=== PATIENT | female | born 1975 | race Two or more races ===

== ENCOUNTER 2016-12-05 04:10 | Inpatient (IN) | payer MEDICAID ==
[~2016-12-05] VITALS: Ht 157.5 cm; Wt 71.6 kg
[2016-12-05 04:36] VITALS: Ht 157.5 cm; Wt 71.6 kg
[2016-12-05 04:37] VITALS: BP 134/80; PULSE 68; RESP 18
[2016-12-05] MEDS ORDERED: PREN1TAB62 PO (04:39)
[2016-12-05] MEDS ORDERED: LACTATED RINGER'S 1,000 ML IV PRN (05:00)
[2016-12-05] MEDS ORDERED: IBUPROFEN 600 MG TAB PO PRN (05:00)
[2016-12-05] MEDS ORDERED: AMPICILLIN 2 GM/NS (PMX) 100 ML IV ONE (05:00)
[2016-12-05] MEDS ORDERED: OXYTOCIN 30 UNITS/LR 500 ML IV SCH ×2 (05:00)
[2016-12-05] MEDS ORDERED: MISOPROSTOL 200 MCG TAB PR PRN ×2 (05:00→15:30)
[2016-12-05] MEDS ORDERED: METHYLERGONOVINE 0.2 MG INJ IM PRN ×2 (05:00→15:30)
[2016-12-05] MEDS ORDERED: BUTORPHANOL 2 MG INJ IV PRN (05:00)
[2016-12-05] MEDS ORDERED: CARBOPROST 250 MCG INJ IM PRN ×2 (05:00→15:30)
[2016-12-05] MEDS ORDERED: OXYTOCIN 30 UNITS/LR 500 ML IV PRN ×2 (05:00→15:30)
[2016-12-05] MEDS ORDERED: LIDOCAINE 1% (MPF) 30 ML INJ INJ PRN (05:00)
[2016-12-05] MEDS: LACTATED RINGER'S 1,000 ML IV SCH ×2 (05:25→06:00)
--- NOTE | 2016-12-05 05:45 | RADRPT ---
PROCEDURE: US OB. CLINICAL INDICATION: Size and dates TECHNIQUE: Multiple sonographic images of the pelvis were obtained. Transabdominal imaging only w as performed. The images were reviewed on a PACS workstation. COMPARISON: No prior studies are available for comparison. FINDINGS: There is a single live intrauterine gestation. Cardiac activity is present with 143 beats per minut e. position is cephalic. Measurements were made in order to determine age. The results are as follows: BPD = 8.71 cm HC = 32.35 cm AC = 38.03 cm FL = 7.66 cm. Estimated gestational age of approximately 37 weeks 0 days. The estimated date of delivery is 12/26/2016. The EFW = 3886 g The placenta is anterior. There is no evidence for an abruption or placenta previa. There are no adnexal masses. IMPRESSION: 1. Single live intrauterine gestation of approximately 37 weeks 0 days, by ultrasound criteria. 2. The estimated date of delivery is 12/26/2016. 3. The estimated weight is 3886 g. RPTAT: HH .Jennifer Leal MD, MD Date Time Electronically viewed and signed by .Jennifer Leal MD, on 12/05/2016 05:45 .G/
--- NOTE | 2016-12-05 05:49 | TRIAGE ---
OB Triage Datetime Report Generated by CPN: 12/05/2016 05:49 Datetime: 12/05/2016 05:29 Comments: PT OFF MONITOR FOR U/S Datetime: 12/05/2016 05:12 Comments: O2 STARTED. Datetime: 12/05/2016 05:01 Labor Evaluation Frequency: 2 Monitor Mode: External Duration (sec)2399: 100 Quality: Mild Pattern: Normal: <= 5 Contractions in 10 Minutes Resting Tone Braddock: Relaxed Heart Rate FHR Baseline Rate: 135 Monitor Mode: External US FHR Baseline Changes: No Baseline Change Variability: Moderate 6-25 bpm Accelerations: 15X15 Decelerations: Variable Category: Category II Datetime: 12/05/2016 04:43 Time of Arrival: 12/05/2016 05:09 EGA: 41.4 Arrived By: Ambulatory Arrived From: Home Datetime: 12/05/2016 04:13 Stage of : OB Triage Assessment Type: Triage Time of Arrival: 12/05/2016 04:06 Arrived By: Wheelchair Arrived From: Home Chief Complaint: CONTRACTIONS AND LEAKING SINCE 0330 Movement: Present Contractions: Irregular Time Contractions Began: 12/05/2016 03:30 Rupture of Membranes: Ruptured Vaginal Discharge: Present Recent Sexual Intercouse: Denies Abdominal Trauma: Not Applicable Patient Complaints: None Time Provider Notified: 12/05/2016 04:44 Provider Notified: DR DUBOSE Initial Plan: CALL BUCKY LIZARRAGA Maternal Assessment Level of Consciousness: Fully Conscious DTR's/Clonus: DTRs 2+; No Clonus Headache: Denies Blurred Vision: No Respiratory Effort: Unlabored; Regular Rhythm; Equal Expansion Breath Sounds, Left: Clear and Equal Breath Sounds, Right: Clear and Equal Nausea/Vomiting: Denies RUQ Epigastric Pain: Denies Lower Extremities Edema: None Degree: None Upper Extremities Edema: None Degree: None Facial Edema: None Temperature Route: Oral Fall Risk Assessment History of Falling: (0) No Secondary Diagnosis: (0) No Ambulatory Aid: (0) Bedrest/Nurse Assist IV Therapy: (0) No Gait: (0) Normal/Bedrest/Immobile Mental Status: (0) Oriented to Own Ability Fall Score: 0 Fall Risk Score Definition: No Risk: No action required Monitor Mode: External Monitor Mode: External US Pain Assessment Pain Scale: 7 Pain Presence: Intermittent Pain Type: Contraction Pain Location: Abdomen; Back Vaginal Exam Dilatation (cms): 1.0 Effacement (%): 50 Station: -3 Exam By: Adri CHUA Membrane Status: Ruptured Membranes Ruptured Date/Time: 12/05/2016 03:30 Membranes Rupture Method: Spontaneous Amniotic Fluid Color: Clear Amniotic Fluid Amount: Small Amniotic Fluid Odor: None
[2016-12-05 05:50] LABS: INR 0.9; PROTIME 12.1 Sec (12.2-14.2); PT RATIO 0.9
[2016-12-05 05:51] LABS: PARTIAL THROMBOPLASTIN TIME 27.1 Sec (25.0-35.0)
[2016-12-05 05:57] LABS: BASOPHILS % 0.4 % (0.0-2.0); EOSINOPHILS # 0.1 10^3/ul (0.0-0.5); HEMATOCRIT 41.2 % (37.0-47.0); HEMOGLOBIN 14.3 g/dl (12.0-16.0); LYMPHOCYTES % 38.1 % (15.0-51.0); MEAN CORPUSCULAR HEMOGLOBIN 31.5 pg (29.0-33.0); MEAN CORPUSCULAR HGB CONC 34.6 g/dl (32.0-37.0); MEAN CORPUSCULAR VOLUME 91.2 fl (82.0-101.0); MEAN PLATELET VOLUME 12.4 fl (7.4-10.4); MONOCYTE # 0.5 10^3/ul (0.3-0.9); MONOCYTES % 6.7 % (0.0-11.0); NEUTROPHIL # 4.2 10^3/ul (1.6-7.5); NEUTROPHILS % 53.8 % (39.0-77.0); PLATELET COUNT 176 10^3/UL (140-440); RED BLOOD COUNT 4.52 10^6/ul (4.20-5.40); RED CELL DISTRIBUTION WIDTH 14.2 % (11.5-14.5); UNCORRECTED WBC 7.9 10^3/ul (4.8-10.8); WHITE BLOOD COUNT 7.9 10^3/ul (4.8-10.8)
[2016-12-05 06:08] LABS: CONDITION 1
[2016-12-05] MEDS ORDERED: TERBUTALINE 1 ML ONE (06:51)
[2016-12-05] MEDS ORDERED: TERBUTALINE 1 MG/ML INJ SC ONE (07:00)
[2016-12-05] MEDS ORDERED: OXYTOCIN 30 UNITS/LR 500 ML BAG IV ONE (07:00)
[2016-12-05 08:17] LABS: ADD UMIC YES; URINE BILIRUBIN (Dip) NEGATIVE (NEGATIVE); URINE BLOOD (Dip) TRACE (NEGATIVE); URINE COLOR LT. YELLOW (YELLOW); URINE GLUCOSE (Dip) NEGATIVE (NEGATIVE); URINE KETONES (Dip) NEGATIVE (NEGATIVE); URINE LEUKOCYTE ESTERASE (Dip) 1+ (NEGATIVE); URINE NITRITE (Dip) NEGATIVE (NEGATIVE); URINE TOTAL PROTEIN (Dip) TRACE (NEGATIVE); URINE UROBILINOGEN (Dip) 0.2 E.U./dL (0.1-1.0)
[2016-12-05] MEDS ORDERED: FENTAnyl 2MCG/ML-ROPIV 0.2% 100 ML ONE (08:19)
[2016-12-05 08:47] LABS: SQUAMOUS EPITHELIAL CELL,UR FEW; URINE RBCS 0-2 /HPF (0)
[2016-12-05] MEDS ORDERED: AMPICILLIN 1 GM/NS (PMX) 50 ML IV SCH (09:00)
[2016-12-05] MEDS ORDERED: CEFAZOLIN 2 GM/50 ML (PMX) 50 ML IVPB SCH (10:30)
[2016-12-05] MEDS ORDERED: morphine SULFATE/PF (10 MG/10 ML) INJ ONE (10:58)
[2016-12-05] MEDS ORDERED: OXYTOCIN 10 UNIT INJ ONE (10:58)
[2016-12-05] MEDS ORDERED: ONDANSETRON 4 MG INJ ONE (10:58)
[2016-12-05] MEDS ORDERED: PHENYLephrine (100 MCG/ML) 5ML SYG ONE (10:59)
[2016-12-05] MEDS ORDERED: KETOROLAC 30 MG INJ IV PRN (14:30)
[2016-12-05] MEDS ORDERED: ONDANSETRON 4 MG INJ IV PRN (14:30)
[2016-12-05] MEDS ORDERED: NALOXONE (0.4 MG/ML) INJ IV PRN (14:30)
[2016-12-05] MEDS ORDERED: morphine 2 MG INJ IV PRN (14:30)
[2016-12-05] MEDS ORDERED: DIPHENHYDRAMINE 50 MG INJ IV PRN (14:30)
--- NOTE | 2016-12-05 14:36 | HP ---
Date/Time of Note Date/Time of Note DATE: 12/05/16 TIME: 14:24 OB - History Hx of Present Free Text/Dictation This is a 41 years old female admitted to [facility] in active labor she is a 1 para 0 with EDC of November 24, 2016 with gestational age at 41 weeks and 4 day, admitting examination cervical dilatation 4-5 cm 90% effacement vertex is -1 station, during the course of labor it was noted heart tracing showing late variable decelerations repeating after most of the contraction considered mostly category 2 and 3 since not anticipating timely delivery this was discussed with the patient and option of observation under very close watch to see if this deceleration resolve or, proceed with operative delivery by patient elected the second she is being prepared to undergo a primary for nonreassuring heart tracing and not anticipating short and timely delivery Estimated Due Date: Nov 24, 2016 : 1 Para: 0 Care: Limited Care Ultrasounds: Normal mid trimester US Obstetrical Complications: None Medical Complications: None Past Family/Social History * Past Medical, Surgical, Family and Obstetric Histories reviewed from chart. Rubella: immune RPR/VDRL: Negative GBS Status: Negative HBsAG: Negative OB Admission Exam Vital Signs Vital Signs Vital Signs Date Time Temp Pulse Resp B/P Pulse Ox O2 Delivery O2 Flow Rate FiO2 12/05/16 04:37 98.9 68 18 134/80 Room Air Physical Exam HEENT: WNL Heart: Rhythm Normal Lungs: Clear, Equal Extremities: Normal Reflexes: Normal Cervical Dilatation: 6cm Effacement: 75% Station: -1 Membranes: Ruptured Heart Rate: 130's Accelerations: Accelerations Present Decelerations: Variable Decelerations Varibility: Moderate Intensity: Moderate Last 72 hours Lab Results CBC & BMP 12/05/16 05:25 OB Assessment/Plan Plan: Section VILMA FERREIRA MD Dec 05, 2016 14:34
[2016-12-05 15:10] VITALS: BP 125/64; PULSE 74; RESP 20
[2016-12-05] MEDS ORDERED: OXYCODONE/ACETAMINOPHEN (5/325) TAB PO PRN ×2 (15:30)
[2016-12-05] MEDS ORDERED: ACETAMINOPHEN/CODEINE #3 TAB PO PRN ×2 (15:30)
[2016-12-05] MEDS ORDERED: CEFAZOLIN 1 GM/50 ML (PMX) 50 ML IVPB SCH (15:30)
[2016-12-05] MEDS ORDERED: LANOLIN 7 GM TUBE TOP PRN (15:30)
[2016-12-05 16:37] VITALS: BP 114/54; PULSE 79; RESP 20
[2016-12-05] MEDS: OXYTOCIN 30 UNITS/LR 500 ML IV SCH ×3 (17:39→23:22)
[2016-12-05 19:50] VITALS: BP_SYST 117; BP_SYST 118; BP_DIAS 56; BP_DIAS 57; PULSE 70; RESP 20
--- NOTE | 2016-12-05 21:24 | OPR ---
DATE OF OPERATION: 12/05/2016 PREOPERATIVE DIAGNOSES: 1. Intrauterine at term, patient in active labor. 2. Multiple variable deceleration category 2 and 3. 3. Not anticipating a timely delivery. POSTOPERATIVE DIAGNOSES 1. Intrauterine at term, patient in active labor. 2. Multiple variable deceleration category 2 and 3. 3. Not anticipating a timely delivery. OPERATION PERFORMED: Primary transverse low cervical section. SURGEON: Vilma Ferreira MD WEED CUTTER: Ciera Álvarez MD ANESTHESIA:_Epidural. ANESTHESIOLOGIST: Dr. rodriguez FINDINGS: Live baby girl, Apgars 8 and 9. Baby weighed 3886 grams, 8 pounds 9 ounces. DETAILS OF THE PROCEDURE: Under satisfactory epidural anesthesia, the patient was prepped and draped and placed in supine position, tilted to the left. Pfannenstiel incision was made. Incision carried through the subcutaneous tissue. Bleeders brought under control with electrocautery. Fascia incised to the length of the incision. Rectus muscle divided in the midline. Peritoneum exposed, entered through a transverse incision. Exploration of abdomen, gravid uterus, normal appearing tubes and ovaries, evidence of labor. Lower segment of the uterus was identified. Bladder flap was developed. Transverse incision was made in the lower segment of the uterus. Amniotic sac ruptured. Clear amniotic fluid noted. Live baby girl was delivered from unengaged LOT position. Shoulders delivered without any difficulty. Nasal oropharyngeal suction was performed. Baby handed to the team for immediate attention. The patient received 20 units of Pitocin. Placenta delivered manually intact. Uterine cavity cleaned with wet sponge and drainage established. Uterus closed in 2 layers using Monocryl #1 in continuous fashion. Peritoneal cavity irrigated with warm saline. Sponge, needle and instrument reported to be correct. Abdominal peritoneum closed with 2-0 chromic catgut continuously. Rectus muscle approximated with a few interrupted 2-0 chromic catgut. Fascia closed with #1 PDS in a continuous fashion. Subcutaneous tissue approximated with 2-0 chromic catgut. Skin closed with edwige. Estimated blood loss 600 mL. Urine bag contained 200 mL of clear urine. The patient tolerated the procedure well, transferred to recovery room in a good condition. Dictated By: VILMA FERREIRA MD HF/NTS Conf#: [id number] DID#: [id number] JANICE
[2016-12-06] VITALS: BP 118/56; PULSE 65; RESP 20
[2016-12-06] MEDS: LACTATED RINGER'S 1,000 ML IV SCH ×2 (00:29→10:30)
[2016-12-06] MEDS: OXYTOCIN 30 UNITS/LR 500 ML IV SCH ×6 (03:22→23:22)
[2016-12-06 04:10] VITALS: BP 108/51; PULSE 69; RESP 18
[2016-12-06 08:35] VITALS: BP 121/57; PULSE 70; RESP 20
[2016-12-06] MEDS ORDERED: INFLUENZA VIRUS VACCINE 0.5 ML (DISPENSING) IM* ONE (09:00)
[2016-12-06 09:12] LABS: BASOPHILS % 0.2 % (0.0-2.0); EOSINOPHILS % 0.1 % (0.0-7.0); HEMATOCRIT 30.8 % (37.0-47.0); LYMPHOCYTES # 2.4 10^3/ul (0.8-2.9); LYMPHOCYTES % 21.8 % (15.0-51.0); MEAN CORPUSCULAR HEMOGLOBIN 32.4 pg (29.0-33.0); MEAN CORPUSCULAR HGB CONC 35.6 g/dl (32.0-37.0); MONOCYTE # 0.8 10^3/ul (0.3-0.9); MONOCYTES % 7.6 % (0.0-11.0); NEUTROPHIL # 7.8 10^3/ul (1.6-7.5); NEUTROPHILS % 70.3 % (39.0-77.0); PLATELET COUNT 142 10^3/UL (140-440); RED BLOOD COUNT 3.39 10^6/ul (4.20-5.40); RED CELL DISTRIBUTION WIDTH 14.9 % (11.5-14.5); UNCORRECTED WBC 11.1 10^3/ul (4.8-10.8); WHITE BLOOD COUNT 11.1 10^3/ul (4.8-10.8)
[2016-12-06 09:15] LABS: CONDITION 1; LH ANALYZER COMMENTS 1
[2016-12-06] MEDS: SENNA/DOCUSATE NA (8.6MG/50MG) TAB PO SCH ×2 (09:15→22:20)
[2016-12-06 11:37] VITALS: BP 120/63; PULSE 86
--- NOTE | 2016-12-06 12:47 | PN ---
Date/Time of Note Date/Time of Note DATE: 12/06/16 TIME: 12:46 OB Subjective Subjective Subjective Post day 1 Vital sign stable afebrile abdomen soft bowel sounds present lochia moderate extremity normal ambulation recommended VILMA FERREIRA MD Dec 06, 2016 12:47
[2016-12-06 16:34] VITALS: BP 109/60; PULSE 75; RESP 20
[2016-12-06] MEDS: IBUPROFEN 600 MG TAB PO SCH ×2 (17:58→18:00)
[2016-12-06 20:00] VITALS: BP 113/59; PULSE 73; RESP 20
[2016-12-07] MEDS: IBUPROFEN 600 MG TAB PO SCH ×4 (00:26→18:16)
[2016-12-07] MEDS: OXYTOCIN 30 UNITS/LR 500 ML IV SCH ×6 (03:22→23:22)
[2016-12-07 07:45] VITALS: BP 116/65; PULSE 67; RESP 20
--- NOTE | 2016-12-07 09:28 | PN ---
Date/Time of Note Date/Time of Note DATE: 12/07/16 TIME: 09:26 OB Subjective Subjective Subjective Post day 2 Afebrile vital sign stable abdomen soft incision dry healing well bowel sounds present had normal bowel movement ambulation recommended Current Medications Medications (Trade) Dose Ordered Sig/Aviva Route PRN Reason Start Time Stop Time Status Last Admin Dose Admin Lactated Ringer's 1,000 ml @ 125 mls/hr Q8H IV 12/05/16 04:45 12/05/16 15:24 DC 12/05/16 06:00 Ampicillin 100 ml @ 100 mls/hr ONCE ONCE IV 12/05/16 05:00 12/05/16 05:59 DC 12/05/16 06:25 Ampicillin (Ampicillin 1 Gm/ NS (Pmx)) 50 ml @ 100 mls/hr Q4H IV 12/05/16 09:00 12/05/16 10:15 DC Butorphanol Tartrate (Stadol) 2 mg Q2H PRN IV PAIN 12/05/16 05:00 12/05/16 15:24 DC Lidocaine 30 ml 30 ml ONCE PRN INJ EPISIOTOMY/TEARING 12/05/16 05:00 12/05/16 15:24 DC Oxytocin/Lactated Ringer's 500 ml @ 125 mls/hr ONCE -MAY REPEAT X1 IV 12/05/16 05:00 12/05/16 15:24 DC Oxytocin/Lactated Ringer's 500 ml @ 125 mls/hr ONCE IV 12/05/16 05:00 12/05/16 15:25 DC 12/05/16 13:22 Ibuprofen 600 mg 600 mg ONCE PRN PO Mild Pain (Pain Score 1-3) 12/05/16 05:00 12/05/16 15:25 DC Lactated Ringer's 1,000 ml @ 2,000 mls/hr Q30M PRN IV PRE-EPIDURAL BOLUS 12/05/16 05:00 12/05/16 15:25 DC 12/05/16 08:25 Oxytocin/Lactated Ringer's 500 ml @ 0 mls/hr ONCE PRN IV For Hemorrhage Management 12/05/16 05:00 12/05/16 15:25 DC Methylergonovine Maleate (Methergine) 0.2 mg ONCE PRN IM VAGINAL BLEEDING 12/05/16 05:00 12/05/16 15:25 DC Carboprost Tromethamine (Hemabate) 250 mcg ONCE PRN IM VAGINAL BLEEDING 12/05/16 05:00 12/05/16 15:25 DC Misoprostol (Cytotec) 1,000 mcg ONCE PRN WV VAGINAL BLEEDING 12/05/16 05:00 12/05/16 15:25 DC Terbutaline Sulfate 0.25 mg 0.25 mg ONCE ONCE SC 12/05/16 07:00 12/05/16 07:12 DC 12/05/16 07:15 Terbutaline Sulfate 1 ml @ ud STK-MED ONCE .ROUTE 12/05/16 06:51 12/05/16 06:52 DC Fentanyl/ Ropivacaine 100 ml @ ud STK-MED ONCE .ROUTE 12/05/16 08:19 12/05/16 08:20 DC Cefazolin Sodium/ Dextrose (Ancef 2 Gm/50 ml (Pmx)) 50 ml @ 100 mls/hr ONCE IVPB 12/05/16 10:30 12/05/16 15:25 DC Morphine Sulfate (Duramorph) 10 mg STK-MED ONCE .ROUTE 12/05/16 10:58 12/05/16 10:59 DC Oxytocin (Oxytocin) 10 units STK-MED ONCE .ROUTE 12/05/16 10:58 12/05/16 10:59 DC Ondansetron HCl (Zofran Inj) 4 mg STK-MED ONCE .ROUTE 12/05/16 10:58 12/05/16 10:59 DC Phenylephrine HCl (Dain-Synephrine Inj Syg) 500 mcg STK-MED ONCE .ROUTE 12/05/16 10:59 12/05/16 11:00 DC Naloxone HCl (Narcan) 0.1 mg Q2M PRN IV FOR RESP RATE 8 OR LESS 12/05/16 14:30 12/06/16 14:29 DC Ketorolac Tromethamine (Toradol) 30 mg Q6H PRN IV PAIN 12/05/16 14:30 12/06/16 14:29 DC 12/06/16 10:50 Morphine Sulfate (morphine) 2 mg Q3H PRN IV PAIN LEVEL 1-5 12/05/16 14:30 12/06/16 14:29 DC Diphenhydramine HCl (Benadryl) 25 mg Q6H PRN IV ITCHING 12/05/16 14:30 12/06/16 14:29 DC Ondansetron HCl (Zofran Inj) 4 mg Q6H PRN IV NAUSEA AND/OR VOMITING 12/05/16 14:30 12/06/16 14:29 DC Miscellaneous Information (* Miscellaneous Pharmacy Order) Duramorph: 2 mg Epidu... GIVEN XX 12/05/16 14:30 12/05/16 15:25 DC Acetaminophen/ Codeine Phosphate (Tylenol No.3) 1 tab Q4H PRN PO PAIN LEVEL 4-6 12/05/16 15:30 Acetaminophen/ Codeine Phosphate (Tylenol No.3) 2 tab Q4H PRN PO PAIN LEVEL 7-10 12/05/16 15:30 12/06/16 17:59 Oxycodone/ Acetaminophen (Percocet (5/ 325)) 1 tab Q4H PRN PO PAIN LEVEL 4-6 12/05/16 15:30 Oxycodone/ Acetaminophen (Percocet (5/ 325)) 2 tab Q4H PRN PO PAIN LEVEL 7-10 12/05/16 15:30 Ibuprofen (Motrin) 600 mg Q6 PO 12/06/16 12:00 12/07/16 06:13 Simethicone (Mylicon) 160 mg Q8H PRN PO DISTENSION/GAS/BLOATING 12/05/16 15:30 12/06/16 09:15 Senna/Docusate Sodium (Senokot-S) 1 tab BID PO 12/06/16 09:00 12/06/16 22:20 Lanolin ([id number]) 1 applic BEDSIDE MEDICATION PRN TOP BEDSIDE FOR EDNA TO NIPPLES 12/05/16 15:30 Diphtheria/ Tetanus/Acell Pertussis 0.5 ml 0.5 ml ONCE ONCE IM* 12/08/16 09:00 12/08/16 09:01 Oxytocin/Lactated Ringer's 500 ml @ 0 mls/hr ONCE PRN IV For Hemorrhage Management 12/05/16 15:30 Methylergonovine Maleate (Methergine) 0.2 mg ONCE PRN IM VAGINAL BLEEDING 12/05/16 15:30 Carboprost Tromethamine (Hemabate) 250 mcg ONCE PRN IM VAGINAL BLEEDING 12/05/16 15:30 Misoprostol 1000 mcg 1,000 mcg ONCE PRN [place] VAGINAL BLEEDING 12/05/16 15:30 Cefazolin Sodium 50 ml @ 100 mls/hr ONCE IVPB 12/05/16 15:30 12/05/16 15:59 DC 12/05/16 18:00 Oxytocin/Lactated Ringer's 500 ml @ 125 mls/hr Q4H IV 12/05/16 15:22 12/05/16 20:35 Influenza Virus Vaccine 0.5 ml 0.5 ml ONCE ONCE IM* 12/06/16 09:00 12/06/16 09:01 DC Lactated Ringer's (Lr) 1,000 ml @ 125 mls/hr Q8H IV 12/06/16 23:24 12/06/16 10:30 VILMA FERREIRA MD Dec 07, 2016 09:28
[2016-12-07] MEDS: SENNA/DOCUSATE NA (8.6MG/50MG) TAB PO SCH ×2 (10:12→21:48)
[2016-12-07] MEDS ORDERED: NA PHOSPHATE/BIPHOS 133 ML ENEMA PR ONE (10:30)
[2016-12-07] MEDS: LACTATED RINGER'S 1,000 ML IV SCH ×2 (15:24→23:24)
[2016-12-07 16:00] VITALS: BP 116/57; PULSE 66; RESP 18
[2016-12-07 20:15] VITALS: BP 116/58; PULSE 73; RESP 17
[2016-12-08] MEDS: IBUPROFEN 600 MG TAB PO SCH ×3 (00:19→11:37)
[2016-12-08] MEDS: OXYTOCIN 30 UNITS/LR 500 ML IV SCH ×2 (03:22→06:34)
[2016-12-08 04:27] VITALS: BP 113/69; PULSE 61; RESP 18
[2016-12-08] MEDS: LACTATED RINGER'S 1,000 ML IV SCH (06:35)
[2016-12-08 08:00] VITALS: BP 119/71; PULSE 73; RESP 18
[2016-12-08] MEDS: SENNA/DOCUSATE NA (8.6MG/50MG) TAB PO SCH (08:55)
[2016-12-08] MEDS ORDERED: DIPHTH/TET/ACEL PERTUSS (ADULT) 0.5 ML VIAL IM* ONE (09:00)
--- NOTE | 2016-12-08 09:54 | PD.PPDC ---
SCRAP WHEELER Discharge Instruction Condition Patient Condition: Good Diet Diet: Resume Regular Diet Activity/Restrictions Activity: Normal Activity May Shower Restrictions: No Exercising Wound/Drain Care Instructions Wound/Drain Care Instructions: Remove Steri Strips in 1 week Follow-up Follow-up with Physician: 4, Day/Days Provider Information: Appointment clinic in 4 days to BHARTI gibbons. 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
--- NOTE | 2016-12-08 10:01 | DS ---
Date/Time of Note Date/Time of Note DATE: 12/08/16 TIME: 09:55 Obstetrical Discharge Record Final Diagnosis Final Diagnosis: Term delivered Section Section: Primary Complications Other (in labor category 2 and 3 heart tracing) Augmentation: No Induction: No Condition on Discharge Physical Assessment Last Vitals: 41 years old female 1 para 0 admitted to [facility] with premature rupture of membrane in labor using the course of labor baby had intolerance to contractions showing category 2 and 3 heart tracing not anticipating a timely delivery patient underwent a primary C- section ,her postoperative course in the hospital was uneventful did not spike temp or having problem with bowel function or urination she is discharged home with follow-up instructions to be seen at the clinic in 4 days to DC her edwige she also received a prescription of analgesics for postoperative pain care. Voiding: Yes Bowel Movement: Yes Fundus: Firm Abdomen and Incision: Healing well free of inflammation Calf Tenderness: No Patient Condition: Good VILMA FERREIRA MD Dec 08, 2016 10:01
[2016-12-08 16:00] VITALS: BP 116/73; PULSE 68; RESP 18
== END 2016-12-08 18:00 | disposition home or self-care (01) | DRG 766 ==
LOC: L-D 04:10 → OBT 04:10 → L-D 04:44 → OBT 04:44 → L-D 05:41 → PP1 14:34
PROVIDERS: ADMIT Obstetrics & Gynecology; ATTEND Obstetrics & Gynecology
PROC: 10D00Z1 Extraction of Products of Conception, Low, Open Approach (ICD-10-PCS; principal; 2016-12-05 11:00)
DX: O76 Abnormality in fetal heart rate and rhythm complicating labor and delivery (principal); Z37.0 Single live birth; Z3A.41 41 weeks gestation of pregnancy
CPT/HCPCS: 36415; 62319; 76815; 81001; 81003; 85025; 85610; 85730; 86592; 86900; 86901; 87086; 87340; 90686; 90715; 94760; 99464; G0463; J0290; J0690; J1885; J2274; J2370; J2405; J2590; J3010; J3105; J7120